=== PATIENT | male | born 1995 | race Caucasian/White ===

== ENCOUNTER 2019-11-05 01:05 | Day surgery (SDC) | payer OTHER, SELFPAY ==
[2019-10-21 15:35] VITALS: BMI 22.3
--- NOTE | 2019-11-04 17:12 | PM.SD ---
Same Day Admit/Disch: HPI History of Present Illness Chief complaint: Right Inguinal Hernia Repair Narrative: Taj Adams is a 24 year old male who is history of right testicular discomfort. He had testicular surgery as an . He noticed a bulge in the right groin but this was about 10 or 12 years ago. The testicular discomfort has been there for 4 months now. He was seen in the office and found to have a small right inguinal hernia. He is taken to surgery now for right inguinal hernia repair. 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 Gender identity (if verbalized by the patient): Male Same Day Admit/Disch: Med Pre-admit Medications Home Medications Medication Instructions Recorded Confirmed Type ketorolac 10 mg PO Q6H 4 Days #16 tablet 11/05/19 Rx oxycodone-acetaminophen 0.5 - 1 tablet PO Q6H PRN #10 11/05/19 Rx tablet Exam Const: General: comfortable, no acute distress, alert and awake HENMT: Head: normocephalic and atraumatic Mouth: Yes Normal oral and palatal mucosa present Eyes: Conjunctivae: conjunctivae normal Pupils: Equal, round and reactive pupils present EOM: EOMs intact bilaterally Neck: Neck: normal visual inspection, no lymphadenopathy and nontender Resp: Effort & Inspection: normal respiratory effort Auscultation: clear to auscultation bilaterally Cardio: Rate: regular rate Rhythm: regular rhythm Heart sounds: no gallops, no murmurs and no rubs GI: Inspection: non-distended GI Palp: Yes Soft to palpation, No Tenderness to palpation present (GI), No Hepatomegaly present and No Splenomegaly present : Male General Exam: Yes hernia (Right inguinal bulge, pulses with cough) Penis: Yes normal penis Scrotum: scrotum normal Testes: Testes normal Skin: Lesions: no lesions Rashes: no rashes Neuro: General: no focal motor deficits and CN's II-XI intact bilaterally Cranial nerves: Yes Equal, round and reactive pupils present, Yes Bilaterally intact EOM present, Yes facial symmetry and Yes Midline tongue present Speech: normal speech Motor exam (neuro): 5/5 motor strength present throughout and Motor abnormalities not present Extrem: General: no clubbing, cyanosis or edema and edema Psych: Affect: normal affect Thought process: Normal thought process present Insight: Good insight present (Psych) DS: Summary Time Spent with Patient Time attestation: Total time spent providing and/or coordinating discharge services: DS: Diagnosis Discharge Diagnosis (1) Right inguinal hernia: Code(s): K40.90 - Unilateral inguinal hernia, without obstruction or gangrene, not specified as recurrent Status: Chronic Assessment and Plan: Patient having right testicular pain and has a small right inguinal hernia. Will go ahead and proceed with right inguinal hernia repair. The procedure the risks the benefits and the usual time of recovery have been discussed. All questions were answered. He understands and agrees to go ahead. Discharge Plan Discharge Patient Disposition: Home, Self-Care Discharge Instructions: 1. May shower the day after surgery over incision. 2. Call office for: -Wound increasingly painful or bleeding -Vomiting -Fever of greater than 101 degrees 3. Expect some blood on dressing or on skin. 4. If no bowel movement for three days, take 1 oz. (30 ml) Milk of Magnesia; if no results, rai
[2019-11-05 09:41] VITALS: BP 131/74; PULSE 113; RESP 20; TEMP 37.1; O2SAT 100
[2019-11-05] MEDS: LACTATED RINGERS 1,000 ML 30 ML IV CONT (09:55)
--- NOTE | 2019-11-05 10:27 | WPDHPUPDATE1 ---
History and Physical Update Update Date/Time: 11/05/19 10:27 History and Physical has been reviewed, including an updated exam of the patient. There are NO changes in the patient's condition. Risks, benefits, and alternatives have been discussed and questions answered. Patient agrees to proceed with procedure.
--- NOTE | 2019-11-05 10:57 | P.PNAN_ITS ---
Anes - Initial Pre Proc Eval Procedure: Operation Date: 11/05/19 11:30 Proposed Procedures p Right Inguinal Hernia Repair - Acosta Doss MD Date/Time: 11/05/19 10:57 Surgeon: Acosta Doss MD Pre Op Diagnosis: Right Inguinal Hernia Repair Patient Data Age: 24 Gender: M Height: 1.63 m Weight: 58.8 kg Last Vital Signs Temp 37.1 C 11/05/19 09:41 Pulse 113 H 11/05/19 09:41 Resp 20 11/05/19 09:41 BP 131/74 11/05/19 09:41 Pulse Ox 100 11/05/19 09:41 Allergies Allergy/AdvReac Type Severity Reaction Status Date / Time No Known Allergies Allergy Verified 11/05/19 09:34 Home Medications Medication Instructions Recorded Confirmed Type No Home Medications 09/16/19 11/05/19 History Patient hx anesthesia problems: none Family hx anesthesia problems: none PMFSH Past Medical History Medical History No active medical problems Surgical History Surgical History History of testicular surgery as a baby Family History Family History Grandparent Diabetes mellitus Social History Social History Smoking status: Never smoker Alcohol intake: current Substance use: never 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 Questions were solicited and answers provided to the satisfaction of the patient/family/POA.
[2019-11-05] MEDS: IBUPROFEN IV 800 MG/200 ML 800 MG/200 ML BAG 400 MG IVPB (12:25)
[2019-11-05] MEDS: ceFAZolin 2 GM/D5W 50 ML 2 GM/50 ML BAG IVPB (12:28)
[2019-11-05 13:55] VITALS: BP 112/67; PULSE 92; RESP 16; TEMP 37.1; O2SAT 99
--- NOTE | 2019-11-05 13:59 | PM.PROC ---
Procedure Note - Detailed Date of procedure: 11/05/19 Pre-op diagnosis: Right Inguinal Hernia Right inguinal hernia Post-op diagnosis: same Procedure performed: Repair of right inguinal hernia Description of procedure: The patient was taken to surgery and IV sedation was administered. The right groin and genitalia were prepped and draped. Proposed incision was marked on the skin. Local was infiltrated into the skin and the deeper subcutaneous tissues. Incision was made and deepened through the subcutaneous. Crossing veins were cauterized and divided. Dissection was carried through Gilberto's fascia down to the external oblique aponeurosis. The aponeurosis was exposed as was the external ring. Additional local anesthesia was infiltrated deep to the aponeurosis in the area of the spermatic cord and inguinal canal contents. The aponeurosis was opened laterally and extended medially through the external ring. The leaves of the aponeurosis were dissected free from the spermatic cord. The ileoinguinal nerve was carefully preserved throughout the dissection and was left attached to the spermatic cord. The cord was then mobilized medially on a Parker drain. The cord was dissected back to the internal ring. Dissection was then carried out in the anteromedial spermatic cord. The hernia sac was found and dissected free. Who was dissected back to a high dissection. It was suture ligated near the properitoneal fat and then the hernia sac was amputated just above the ligature. The stump retracted back into the retroperitoneum. We then proceeded with the repair of the inguinal canal floor. Interrupted sutures of 0 Ethibond were used. We started medially suturing the transversalis fascia 1st to the pubic tubercle. Then, moving laterally, the transversalis fascia was sutured to the reflection of the inguinal ligament. This is a Bassini repair. Once the repair was completed, the spermatic cord with ileoinguinal nerve was then placed back in the inguinal canal. The external oblique aponeurosis was closed with interrupted 3 0 Vicryl suture. Gilberto's fascia was closed with interrupted 3 0 Vicryl suture. Four 0 Vicryl subcuticular skin sutures were placed. The skin was closed finally with a running 4 0 Monocryl skin suture. The wound was dressed with Exofin surgical adhesive. The patient was awakened and taken to recovery in good condition. Sponge and needle counts were correct x2. Anesthesia: MAC and local (0.5% Marcaine with Exparel) Surgeon: Acosta Doss MD Manager Of Housekeeping: Brittany LLOYD Estimated blood loss (mL): 5 Drains: No Packing: No Pathology: none sent Complications: None Condition: stable Disposition: PACU Findings: Small indirect hernia.
--- NOTE | 2019-11-05 14:00 | SUR.PHASEII ---
1400 updated mom in waiting room
[2019-11-05 14:25] VITALS: BP 111/69; PULSE 111; RESP 20; O2SAT 99
[2019-11-05 15:00] VITALS: BP 128/84; PULSE 97; RESP 16
== END 2019-11-05 15:13 | disposition home or self-care (01) ==
PROVIDERS: PCP Pediatrics; Visit Provider Surgery
PROC: (CPT 49505; principal; 2019-11-05 11:30)
DX: K40.90 Unilateral inguinal hernia, without obstruction or gangrene, not specified as recurrent (principal)
CPT/HCPCS: 49505; A9270; C9290; J0690; J1741; J2250; J2704; J3010; J7120

== ENCOUNTER → 2021-01-01 02:20 | Outpatient (CLI) | payer OTHER, SELFPAY ==
[2021-01-02 14:53] LABS: SARS-CoV-2 RNA PCR Negative
== END ==
PROVIDERS: PCP Pediatrics; Visit Provider Urology
DX: Z01.812 Encounter for preprocedural laboratory examination (principal); Z20.822 Contact with and (suspected) exposure to COVID-19
CPT/HCPCS: C9803; U0003; U0005

== ENCOUNTER 2021-01-05 00:55 | Day surgery (SDC) | payer OTHER, SELFPAY ==
[2021-01-03 09:35] VITALS: BMI 22.3
[2021-01-05] VITALS (7 sets, daily range): BP systolic 115–129; BP diastolic 71–89; PULSE 87–120; RESP 14–20; TEMP 36.6–36.8; O2SAT 98–100
--- NOTE | 2021-01-05 13:04 | WPDANESEPPF ---
Anes - Initial Pre Proc Eval Procedure: Operation Date: 01/05/21 14:30 Proposed Procedures p Penile Plication - Michele Norton MD Date/Time: 01/05/21 13:04 Surgeon: Michele Norton MD Pre Op Diagnosis: penile plication Patient Data Age: 25 Gender: M Height: 5 ft 4 in Weight: 59 kg Allergies Allergy/AdvReac Type Severity Reaction Status Date / Time No Known Allergies Allergy Verified 01/05/21 12:46 Home Medications Medication Instructions Recorded Confirmed Type buspirone [BuSpar] 5 mg PO DAILY 01/03/21 01/05/21 History Patient hx anesthesia problems: post op nausea/vomiting Family hx anesthesia problems: post op nausea/vomiting PMFSH Past Medical History Medical History Anxiety No active medical problems Surgical History Surgical History History of right inguinal hernia repair 11/05/2019 History of testicular surgery as a baby Family History Family History Grandparent Diabetes mellitus Social History Social History Smoking status: Never smoker Alcohol intake: current Drinks per week: 10 Substance use: current Substance use type: marijuana Other substance usage details: SMOKE Last use: 01/03/21 Living arrangements: with roommate(s) 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 Questions were solicited and answers provided to the satisfaction of the patient/family/POA.
[2021-01-05] MEDS: LACTATED RINGERS 1,000 ML 30 ML IV CONT ×2 (13:05→16:13)
[2021-01-05] MEDS: SCOPOLAMINE 1.5 MG PATCH TRANSDERM (13:18)
--- NOTE | 2021-01-05 14:08 | WPDHPUPDATE1 ---
History and Physical Update Update Date/Time: 01/05/21 14:08 History and Physical has been reviewed, including an updated exam of the patient. There are NO changes in the patient's condition. Risks, benefits, and alternatives have been discussed and questions answered. Patient agrees to proceed with procedure.
[2021-01-05] MEDS: BUPIVACAINE HCL 0.5% PF 30 ML VIAL INFILTRATE (14:27)
[2021-01-05] MEDS: NEOMYCIN/POLYMYXIN/BACITRACIN OINTMENT 15 GM TUBE 1 APPLIC TOPICAL (14:36)
--- NOTE | 2021-01-05 16:13 | PM.PROC ---
Procedure Note - Detailed Date of procedure: 01/05/21 Pre-op diagnosis: penile plication Post-op diagnosis: same Procedure performed: Penile plication Description of procedure: Informed consents obtained. Patient taken the operating. He was given preoperative IV antibiotics. He was induced anesthesia. He was prepped and draped in normal sterile fashion. A penile block was performed with Marcaine. We performed an artificial erection which revealed a 65degree ventral curvature with point of maximal curvature 3cm proximal to coronal margin. We then made a 2cm dorsal incision over the previous circumcision incision. We carefully dissected down in the midline to avoid the neurovascular bundles. We identified the dorsal vein and mobilized at. A vessel loop was placed around the vein. We then identified the corporal body in the midline and used 3 0 Ethibond sutures to perform a modified Lue technique penile plication. We placed 4 sutures and had improvement to 35? of curvature. Additional two 3-0 Ethibond sutures were placed with the reduction down to 10 to 15? of curvature. This was a nice cosmetic result. We then irrigated copiously, then closed with multiple 3 O Vicryl sutures followed by a 3 0 Monocryl horizontal mattress skin closure. Glue was placed. Compressive dressing was placed and patient was then awakened taken recovery stable condition. Anesthesia: GLMA Surgeon: Michele Norton MD Drains: No Packing: No Pathology: none sent Complications: No immediate complications Condition: stable Disposition: PACU
[2021-01-05] MEDS: ONDANSETRON INJ 4 MG/2 ML VIAL IV PUSH (16:47)
== END 2021-01-05 18:00 | disposition home or self-care (01) ==
PROVIDERS: PCP Pediatrics; Visit Provider Urology
PROC: (CPT 54360; principal; 2021-01-05 14:30)
DX: N48.89 Other specified disorders of penis (principal); F41.9 Anxiety disorder, unspecified; F12.90 Cannabis use, unspecified, uncomplicated
CPT/HCPCS: 54360; 54235; A9270; C9803; J0690; J1100; J2250; J2405; J2704; J3010; J7030; J7120; U0003; U0005